=== PATIENT | male | born 1975 | race Caucasian/White ===

== ENCOUNTER 2016-12-02 12:58 | Emergency (ER) | payer SELFPAY ==
[2016-12-02 14:09] VITALS: BP 137/80
[2016-12-02] MEDS ORDERED: Ibuprofen TAB* 400 MG PO ONE (14:18)
--- NOTE | 2016-12-02 14:19 | UC ---
Hand/Wrist HPI - HPI Summary HPI Summary: complaint of left hand pain that started today at 12:45 pinched hand between 2 pieces of steel as they were getting loaded into truck pain over 4th and 5th metacarpals can't bend his fifth finger constant pulsing aching pain that is non radiating pain is worse with any movement hasn't taken any medication - History Of Current Complaint Chief Complaint: UCUpperExtremity Stated Complaint: LEFT HAND INJURY W/C Time Seen by Provider: 12/02/16 14:06 Hx Obtained From: Patient - Allergies/Home Medications Allergies/Adverse Reactions: Allergies Allergy/AdvReac Type Severity Reaction Status Date / Time No Known Allergies Allergy Verified 12/02/16 14:09 Home Medications: Home Medications Antianxiety Med 1 tab PO DAILY 12/02/16 [History Confirmed 12/02/16] Antidepressant 1 tab PO DAILY 12/02/16 [History Confirmed 12/02/16] PMH/Surg Hx/FS Hx/Imm Hx Previously Healthy: Yes Endocrine History Of: Denies: Diabetes, Thyroid Disease Cardiovascular History Of: Denies: Cardiac Disorders, Hypertension Respiratory History Of: Denies: Asthma - Surgical History Surgical History: Yes Surgery Procedure, Year, and Place: kidney stone, nail removed from right knee - Family History Known Family History: Negative: Cardiac Disease, Hypertension, Diabetes - Social History Occupation: Employed Full-time Lives: With Family Alcohol Use: None Substance Use Type: None Smoking Status (MU): Light Every Day Tobacco Smoker Cessation Counseling: Patient Advised to Stop - Immunization History Most Recent Tetanus Shot: 2011 Review of Systems Constitutional: Negative Skin: Negative Eyes: Negative ENT: Negative Respiratory: Negative Cardiovascular: Negative Gastrointestinal: Negative Genitourinary: Negative Motor: Negative Neurovascular: Negative Musculoskeletal: Other: - left hand pain Neurological: Negative Psychological: Negative All Other Systems Reviewed And Are Negative: Yes Physical Exam Triage Information Reviewed: Yes Appearance: No Pain Distress, Well-Nourished Vital Signs: Initial Vital Signs Temp 99.4 F 12/02/16 14:00 Pulse 83 12/02/16 14:00 Resp 18 12/02/16 14:00 BP 137/80 12/02/16 14:00 Vital Signs Reviewed: Yes Eyes: Positive: Conjunctiva Clear ENT: Positive: Pharynx normal, TMs normal. Negative: Nasal congestion Neck: Positive: No Lymphadenopathy Respiratory: Positive: Lungs clear, Normal breath sounds, No respiratory distress Cardiovascular: Positive: RRR, No Murmur, Pulses Normal Abdomen Description: Positive: Nontender, Soft Bowel Sounds: Positive: Present Musculoskeletal: Positive: Other: - LUE- Neurological Exam: Normal Psychological Exam: Normal Skin Exam: Normal Hand/Wrist Course/Dx - Differential Dx/Diagnosis Differential Diagnosis/HQI/PQRI: Contusion, Fracture, Sprain, Strain Provider Diagnoses: left hand contusion Discharge - Discharge Plan Condition: Stable Disposition: HOME Prescriptions: Ibuprofen TAB* [Motrin TAB* 800 MG] 800 mg PO TID #30 tab Patient Education Materials: Contusion in Adults (ED), RICE Therapy (ED) Referrals: Sean Perry [Primary Care Provider] - Additional Instructions: Increase fluids and rest Take acetaminophen or ibuprofen for fever or pain Please review your discharge instructions. If your symptoms do not improve please call your primary care provider or return to urgent care
--- NOTE | 2016-12-02 14:36 | RAD ---
INDICATION: Left hand injury. TECHNIQUE: 2 views of the left hand were obtained. FINDINGS: The bones are in normal alignment. No fracture is seen. Joint spaces appear maintained. IMPRESSION: NO EVIDENCE FOR FRACTURE.
== END 2016-12-02 15:08 | disposition home or self-care (01) ==
LOC: UCCORT 12:58
DX: S60.222A Contusion of left hand, initial encounter (principal); W23.0XXA Caught, crushed, jammed, or pinched between moving objects, initial encounter; Y93.89 Activity, other specified; Y92.9 Unspecified place or not applicable; Y99.0 Civilian activity done for income or pay; F17.210 Nicotine dependence, cigarettes, uncomplicated
CPT/HCPCS: 99202; A9270-GY; G0463

== ENCOUNTER 2017-11-13 10:55 | Emergency (ER) | payer SELFPAY ==
[2017-11-13 11:59] VITALS: BP 138/96
--- NOTE | 2017-11-13 12:50 | UC ---
Complaint Male HPI - HPI Summary HPI Summary: right testicular pain x 2 days no known injury , + swelling, mild redness, no dyuria, no hx of stds, no discharge no fever, no chills, no n/v - History of Current Complaint Chief Complaint: UCGU Stated Complaint: PERSONAL Time Seen by Provider: 11/13/17 12:08 Hx Obtained From: Patient Onset/Duration: Gradual Onset, Lasting Days - 2, Still Present Timing: Constant Severity Initially: Moderate Severity Currently: Severe Pain Intensity: 7 Location: Testicle - right Character: Sharp, Constant Pressure Aggravating Factor(s): Palpation Alleviating Factor(s): Nothing Associated Signs And Symptoms: Negative: Diaphoresis, Back Pain, Fever, Hematuria, Dysuria, Constipation, Blood in Stool, Rectal Pain, Appetite, Nausea , Vomiting(# Of Episodes =), Penile Swelling, Penile Discharge - Allergies/Home Medications Allergies/Adverse Reactions: Allergies Allergy/AdvReac Type Severity Reaction Status Date / Time No Known Allergies Allergy Verified 11/13/17 11:49 Home Medications: Home Medications Ibuprofen TAB* [Motrin TAB* 800 MG] 800 mg PO TID PRN 11/13/17 [History Confirmed 11/13/17] Venlafaxine EXT RELEASE CAP* [Effexor Xr CAP*] 1 tab PO DAILY 11/13/17 [History Confirmed 11/13/17] hydrOXYzine HCL TAB* [Atarax 25 MG TAB*] 25 mg PO SEE INSTRUCTIONS PRN 11/13/17 [History Confirmed 11/13/17] PMH/Surg Hx/FS Hx/Imm Hx Previously Healthy: Yes - Surgical History Surgical History: Yes Surgery Procedure, Year, and Place: kidney stone, nail removed from right knee - Family History Known Family History: Negative: Cardiac Disease, Hypertension, Diabetes - Social History Alcohol Use: None Substance Use Type: None Smoking Status (MU): Light Every Day Tobacco Smoker - Immunization History Most Recent Tetanus Shot: 2011 Review of Systems Constitutional: Negative Skin: Negative Eyes: Negative ENT: Negative Respiratory: Negative Cardiovascular: Negative Is Patient Immunocompromised?: No All Other Systems Reviewed And Are Negative: Yes Physical Exam Triage Information Reviewed: Yes Appearance: Well-Appearing, Well-Nourished, Pain Distress Vital Signs: Initial Vital Signs Temp 99.6 F 11/13/17 11:52 Pulse 94 11/13/17 11:52 Resp 24 11/13/17 11:52 BP 138/96 11/13/17 11:52 Pulse Ox 98 11/13/17 11:52 Vital Signs Reviewed: Yes Eyes: Positive: Conjunctiva Clear ENT: Positive: Normal ENT inspection, Hearing grossly normal, Pharynx normal Neck: Positive: Supple, Nontender, No Lymphadenopathy Respiratory: Positive: Chest non-tender, Lungs clear, Normal breath sounds Cardiovascular: Positive: RRR, No Murmur, Pulses Normal Abdomen Description: Positive: Nontender, Soft. Negative: CVA Tenderness (R), CVA Tenderness (L), Distended, Guarding Skin Exam: Normal UC Physical Exam Vital Signs On Initial Exam: Initial Vitals Temp Pulse Resp BP Pulse Ox 99.6 F 94 24 138/96 98 11/13/17 11:52 11/13/17 11:52 11/13/17 11:52 11/13/17 11:52 11/13/17 11:52 - Genitalia Exam Male Genitalia: Circumcised Male Genitalia Cont.: Right: Testicles Tender, Testicles With Swelling, Scrotum Non-Tender, Bilateral: Testicles Descended Complaint Male Course/Dx - Differential Dx/Diagnosis Provider Diagnoses: right testicular pain Discharge - Discharge Plan Condition: Stable Disposition: HOME Prescriptions: Ciprofloxacin HCl [Cipro] 500 mg PO BID #20 tablet Patient Education Materials: Epididymitis (ED), Testicle Pain (ED) Forms: *Work Release Referrals: Sean Perry [Primary Care Provider] - 5 Days
--- NOTE | 2017-11-13 13:09 | RAD ---
HISTORY: Right testicular pain and swelling COMPARISONS: None TECHNIQUE: Multiple transverse and longitudinal ultrasound images were obtained of the scrotum, using grayscale, color Doppler, and spectral Doppler imaging. FINDINGS: RIGHT: RIGHT TESTICLE: The right testicle measures 4.6 x 2.7 x 3.2 cm. The right testicle is homogeneous in echotexture, without testicular parenchymal mass. Normal arterial and venous waveforms are identified within the right testicle on spectral Doppler imaging. RIGHT EPIDIDYMIS: The right epididymis measures 1.4 cm at the head. RIGHT SCROTUM: There is small left hydrocele. There is no varicocele. LEFT: LEFT TESTICLE: The left testicle measures 4.6 x 2.2 x 2.8 cm. The left testicle is homogeneous in echotexture, without testicular parenchymal mass. Normal arterial and venous waveforms are identified within the left testicle on spectral Doppler imaging. LEFT EPIDIDYMIS: The left epididymis measures 1.1 cm at the head. There is a 0.4 cm cyst of the left epididymal head. LEFT SCROTUM: There is a small left hydrocele. There is no varicocele. OTHER: None IMPRESSION: 1. NO TESTICULAR PARENCHYMAL MASS. 2. NO SONOGRAPHIC FEATURES OF TORSION. PLEASE NOTE THAT PARTIAL OR INTERMITTENT TORSION MAY BE SONOGRAPHICALLY NORMAL. 3. SMALL BILATERAL HYDROCELES.
== END 2017-11-13 13:58 | disposition home or self-care (01) ==
LOC: UCCORT 10:55
DX: N50.811 Right testicular pain (principal); F17.210 Nicotine dependence, cigarettes, uncomplicated
CPT/HCPCS: 76870; 81003; 99212; G0463

== ENCOUNTER 2018-06-25 10:12 | Emergency (ER) | payer SELFPAY ==
[2018-06-25 11:45] VITALS: BP 133/96
--- NOTE | 2018-06-25 12:08 | UC ---
Complaint Male HPI - HPI Summary HPI Summary: The patient is a 42-year-old male with the onset of bilateral testicular pain yesterday evening. Left testicle is more painful than the right. He has no dysuria urgency or frequency of urination. He denies any withdrawal discharge. He had similar symptoms in November of this year which was diagnosed as epididymitis. 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 Pain worsens with bending over and lifting. - History of Current Complaint Chief Complaint: UCGU Stated Complaint: PERSONAL (SWELLING) Time Seen by Provider: 06/25/18 11:50 Hx Obtained From: Patient Onset/Duration: Gradual Onset, Lasting Hours Timing: Constant Severity Initially: Moderate Severity Currently: Moderate Pain Intensity: 7 - MAX, NOW A 4 Pain Scale Used: 0-10 Numeric Location: Testicle Character: Constant Pressure Aggravating Factor(s): Nothing Alleviating Factor(s): Nothing Associated Signs And Symptoms: Positive: Negative - Risk Factors Testicular Torsion: Negative - Allergies/Home Medications Allergies/Adverse Reactions: Allergies Allergy/AdvReac Type Severity Reaction Status Date / Time No Known Allergies Allergy Verified 06/25/18 11:38 PMH/Surg Hx/FS Hx/Imm Hx Previously Healthy: Yes - Surgical History Surgical History: Yes Surgery Procedure, Year, and Place: nail removed from right knee - Family History Known Family History: Negative: Cardiac Disease, Hypertension, Diabetes - Social History Alcohol Use: None Substance Use Type: None Smoking Status (MU): Light Every Day Tobacco Smoker Type: Cigarettes Amount Used/How Often: 7 CIGS A DAY - Immunization History Most Recent Tetanus Shot: 2011 Review of Systems Constitutional: Negative Skin: Negative Eyes: Negative ENT: Negative Respiratory: Negative Cardiovascular: Negative Gastrointestinal: Negative Genitourinary: Other - l>r testicular pain Motor: Negative Neurovascular: Negative Musculoskeletal: Negative Neurological: Negative Psychological: Negative All Other Systems Reviewed And Are Negative: Yes Physical Exam Triage Information Reviewed: Yes Appearance: Well-Appearing, No Pain Distress, Well-Nourished Vital Signs: Initial Vital Signs Temp 98.9 F 06/25/18 11:39 Pulse 70 06/25/18 11:39 Resp 20 06/25/18 11:39 BP 133/96 06/25/18 11:39 Pulse Ox 99 06/25/18 11:39 Vital Signs Reviewed: Yes Eyes: Positive: Conjunctiva Clear ENT: Positive: Hearing grossly normal. Negative: Nasal congestion, Nasal drainage, Tonsillar exudate, Trismus, Muffled voice, Hoarse voice Neck: Positive: Supple, Nontender Respiratory: Positive: Lungs clear, Normal breath sounds, No respiratory distress, No accessory muscle use Cardiovascular: Positive: RRR, No Murmur Abdomen Description: Positive: Nontender, No Organomegaly Male Genital Exam: Positive: No Hernia, Epididymal Tenderness - L>R. Negative: Erythema, Hernia Mass, Inguinal Tenderness, Scrotum Tenderness (R), Scrotum Tenderness (L), Urethral Discharge Musculoskeletal: Positive: Strength Intact, ROM Intact, No Edema Neurological: Positive: Alert Psychological Exam: Normal Skin Exam: Normal Diagnostics - Laboratory Diagnostic Studies Completed/Ordered: UA (+) rbc Complaint Male Course/Dx - Differential Dx/Diagnosis Provider Diagnoses: EPIDIDYMITIS Discharge - Sign-Out/Discharge Documenting (check all that apply): Patient Departure All imaging exams completed and their final reports reviewed: No Studies - Discharge Plan Condition: Stable Disposition: HOME Prescriptions: DOXYcycline CAP(*) [DOXYcycline 100MG CAP(*)] 100 mg PO BID #14 cap Patient Education Materials: Epididymitis (ED) Forms: *Work Release Referrals: Sean Perry [Primary Care Provider] - 1 Week (bp recheck) Additional Instructions: TAKE YOUR IBUPROFEN RECHECK FOR NEW OR WORSENING SYMPTOMS RECHECK IN 3-5 DAYS IF NOT BETTER - Billing Disposition and Condition Condition: STABLE Disposition: Home
== END 2018-06-25 12:14 | disposition home or self-care (01) ==
LOC: UCCORT 10:12
DX: F17.210 Nicotine dependence, cigarettes, uncomplicated (principal); N45.1 Epididymitis
CPT/HCPCS: 81003; 87491; 87591; 99212; G0463

== ENCOUNTER 2018-11-10 10:31 | Emergency (ER) | payer SELFPAY ==
[2018-11-10 11:00] VITALS: BP 141/85
--- NOTE | 2018-11-10 12:00 | UC ---
Lower Extremity/Ankle HPI - HPI Summary HPI Summary: right heel pain x 6 months, no known injury , pain is 6 out of 10 , no radiation no swelling, no bruising increase pain with walking, pt does a lot of walking at work and is on his feel all the time - History of Current Complaint Chief Complaint: UCLowerExtremity Stated Complaint: RIGHT HEEL/HIP CONCERN Time Seen by Provider: 11/10/18 11:12 Hx Obtained From: Patient Onset/Duration: Gradual Onset, Lasting Weeks - 6 months, Still Present Severity Initially: Moderate Severity Currently: Moderate Pain Intensity: 7 Aggravating Factor(s): Standing, Ambulation Alleviating Factor(s): Rest, Ice Able to Bear Weight: Yes - Allergies/Home Medications Allergies/Adverse Reactions: Allergies Allergy/AdvReac Type Severity Reaction Status Date / Time No Known Allergies Allergy Verified 11/10/18 10:58 PMH/Surg Hx/FS Hx/Imm Hx - Additional Past Medical History Additional PMH: anxiety depression, recovering ETOH KIDNEY STONES Psychological History: Anxiety, Depression - Surgical History Surgical History: Yes Surgery Procedure, Year, and Place: nail removed from right knee - Family History Known Family History: Negative: Cardiac Disease, Hypertension, Diabetes - Social History Alcohol Use: None Substance Use Type: None Smoking Status (MU): Light Every Day Tobacco Smoker Type: Cigarettes Amount Used/How Often: 7 CIGS A DAY - Immunization History Most Recent Tetanus Shot: 2011 Review of Systems All Other Systems Reviewed And Are Negative: Yes Constitutional: Positive: Negative Skin: Positive: Negative Eyes: Positive: Negative ENT: Positive: Negative Respiratory: Positive: Negative Is Patient Immunocompromised?: No Physical Exam Triage Information Reviewed: Yes Appearance: Well-Appearing, No Pain Distress, Well-Nourished Vital Signs: Initial Vital Signs Temp 98.2 F 11/10/18 10:56 Pulse 78 11/10/18 10:56 Resp 18 11/10/18 10:56 BP 141/85 11/10/18 10:56 Pulse Ox 98 11/10/18 10:56 Vital Signs Reviewed: Yes Eye Exam: Normal Eyes: Positive: Conjunctiva Clear ENT: Positive: Normal ENT inspection, Hearing grossly normal, Pharynx normal Neck: Positive: Supple, Nontender, No Lymphadenopathy Respiratory: Positive: Chest non-tender, Lungs clear, Normal breath sounds Cardiovascular: Positive: RRR, No Murmur, Pulses Normal Abdominal Exam: Normal Abdomen Description: Positive: Nontender, Soft Musculoskeletal: Positive: Other: - right foot: no swelling, no erythema, + tenderness platar heel Diagnostics - Laboratory Diagnostic Studies Completed/Ordered: right heel xray : heel spur Lower Extremity Course/Dx - Differential Dx/Diagnosis Provider Diagnosis: Pain of right heel Discharge - Sign-Out/Discharge Documenting (check all that apply): Patient Departure All imaging exams completed and their final reports reviewed: Yes - Discharge Plan Condition: Stable Disposition: HOME Patient Education Materials: Heel Spur (ED), Plantar Fasciitis Exercises (ED) Referrals: Sean Perry [Primary Care Provider] - 7 Days Manny Palm DPM [Doctor of Podiatric Medicine] - As Soon As Possible - Billing Disposition and Condition Condition: STABLE Disposition: Home
== END 2018-11-10 11:59 | disposition home or self-care (01) ==
LOC: UCCORT 10:31
DX: M25.571 Pain in right ankle and joints of right foot (principal); F17.210 Nicotine dependence, cigarettes, uncomplicated
CPT/HCPCS: 99211; G0463

== ENCOUNTER 2019-01-25 09:13 | Emergency (ER) | payer OTHER ==
[2019-01-25 09:25] VITALS: BP 140/91
[2019-01-25] MEDS ORDERED: Ibuprofen TAB* 600 MG PO ONE (09:32)
[2019-01-25] MEDS ORDERED: HYDROcodone/ACETAMIN 5-325 MG* 1 TAB PO ONE (09:32)
--- NOTE | 2019-01-25 10:27 | UC ---
Back Pain HPI - HPI Summary HPI Summary: 43 year old male with PMH + for anxiety, h/o ETOH abuse presents after work injury, fell onto bottom after wrapping pallet, immediate pain, no numbness, tingling, ambulatory with pain at buttock area, no loss of bowel/ bladder function. has h/o spinal disease- when young, jumped off roof with + fracture to back, non-op. - History of Current Complaint Chief Complaint: UCBackPain Stated Complaint: WC-SP FALL,LOWER BACK PAIN Time Seen by Provider: 01/25/19 09:23 Hx Obtained From: Patient Onset/Duration: Sudden Onset, Lasting Hours, Still Present Timing: Constant Severity Initially: Moderate Severity Currently: Moderate Pain Intensity: 0 Pain Scale Used: 0-10 Numeric Back Pain: Is Discrete @ - lower spine/buttock area Character: Sharp, Throbbing, Spasmodic, Stiffness Aggravating Factor(s): Movement, Lifting, Bending, Walking Alleviating Factor(s): Rest - Allergies/Home Medications Allergies/Adverse Reactions: Allergies Allergy/AdvReac Type Severity Reaction Status Date / Time No Known Allergies Allergy Verified 01/25/19 09:20 PMH/Surg Hx/FS Hx/Imm Hx Previously Healthy: No - anxiety, back pain - Surgical History Surgical History: Yes Surgery Procedure, Year, and Place: nail removed from right knee - Family History Known Family History: Negative: Cardiac Disease, Hypertension, Diabetes - Social History Alcohol Use: None Substance Use Type: None Smoking Status (MU): Light Every Day Tobacco Smoker Type: Cigarettes Amount Used/How Often: 7 CIGS A DAY - Immunization History Most Recent Tetanus Shot: 2011 Review of Systems All Other Systems Reviewed And Are Negative: Yes Musculoskeletal: Positive: Arthralgia, Decreased ROM, Myalgia Psychological: Positive: Anxious Is Patient Immunocompromised?: No Physical Exam Triage Information Reviewed: Yes Appearance: Well-Appearing, No Pain Distress, Well-Nourished Vital Signs: Initial Vital Signs Temp 99.9 F 01/25/19 09:21 Pulse 91 01/25/19 09:21 Resp 15 01/25/19 09:21 BP 140/91 01/25/19 09:21 Pulse Ox 99 01/25/19 09:21 Vital Signs Reviewed: Yes Eyes: Positive: Conjunctiva Clear Neck: Positive: Supple, Nontender. Negative: Nuchal Rigidity Musculoskeletal: Positive: Other: - ROM of spine WNLs with extension, flexion, side to side motions, TTP over ~ L1 region, mid lumbar, and saccryl region. no soft tissue pain, no paraspinal tenderness. Neurological: Positive: Other: - patellar reflexes 3+ b/l Psychological Exam: Normal Skin Exam: Normal Back Pain Course/Dx - Course Course Of Treatment: radiograph + for DJD, prior injuries, no acute injury. [place]/ motrin given - Increase rest over next 48 hours, avoid heavy lifting, bending, pulling - Gentle range of motion exercises and stretches - [place] as needed for severe pain - Motrin 600mg every 8 hours for next 3-4 days to prevent swelling - Increase fluid intake - WOrk note - Differential Dx/Diagnosis Differential Diagnosis/HQI/PQRI: Strain, Sprain Provider Diagnosis: Lumbago Discharge - Sign-Out/Discharge Documenting (check all that apply): Patient Departure All imaging exams completed and their final reports reviewed: Yes - Discharge Plan Condition: Good Disposition: HOME Prescriptions: HYDROcodone/ACETAMIN 5-325 MG* [[place] 5-325 TAB*] 1 tab PO Q6H PRN #15 tab MDD 4 PRN Reason: Pain Ibuprofen TAB* [Motrin TAB* 600 MG] 600 mg PO Q8H PRN #30 tab PRN Reason: Pain Patient Education Materials: Acute Low Back Pain (ED), Lower Back Exercises (ED ) Forms: *Work Release Referrals: Sean Perry [Primary Care Provider] - Additional Instructions: - Increase rest over next 48 hours, avoid heavy lifting, bending, pulling - Gentle range of motion exercises and stretches - [place] as needed for severe pain - Motrin 600mg every 8 hours for next 3-4 days to prevent swelling - Increase fluid intake - WOrk note - Billing Disposition and Condition Condition: GOOD Disposition: Home - Attestation Statements Provider Attestation: Per institutional requirements, I have reviewed the chart, however, I was not consulted specifically or made aware of this patient by the midlevel provider. I did not personally evaluate, interact with , or disposition this patient.
== END 2019-01-25 10:20 | disposition home or self-care (01) ==
LOC: UCCORT 09:13
DX: M54.5 Low back pain (principal); F41.9 Anxiety disorder, unspecified; F17.210 Nicotine dependence, cigarettes, uncomplicated
CPT/HCPCS: 72110; 99212; A9270-GY; G0463

== ENCOUNTER 2019-11-04 12:55 | Emergency (ER) | payer BC ==
--- NOTE | 2019-11-04 13:10 | UC ---
Cardiac HPI - HPI Summary HPI Summary: 44 year old male with left jaw pain , left arm pain that radiates down the arm. He has a history of smoking. Left lower tooth pain for 3 days and the past 3 hours with severe pain in the left arm that radiates down the arm. Pain is alex [place] 04/24 - History of Current Complaint Stated Complaint: MOTUH/JAW COMP Time Seen by Provider: 11/04/19 13:08 Hx Obtained From: Patient Aggravating Factor(s): Exertion Alleviating Factor(s): Nothing - Allergy/Home Medications Allergies/Adverse Reactions: Allergies Allergy/AdvReac Type Severity Reaction Status Date / Time No Known Allergies Allergy Verified 01/25/19 09:20 Home Medications: Home Medications Venlafaxine EXT RELEASE CAP* [Effexor Xr CAP*] 1 tab PO DAILY 11/13/17 [History Confirmed 01/25/19] hydrOXYzine HCL TAB* [Atarax 25 MG TAB*] 25 mg PO SEE INSTRUCTIONS PRN 11/13/17 [History Confirmed 01/25/19] HYDROcodone/ACETAMIN 5-325 MG* [[place] 5-325 TAB*] 1 tab PO Q6H PRN #15 tab MDD 4 01/25/19 [Rx] Ibuprofen TAB* [Motrin TAB* 600 MG] 600 mg PO Q8H PRN #30 tab 01/25/19 [Rx] PMH/Surg Hx/FS Hx/Imm Hx Previously Healthy: Yes Psychological History: Anxiety, Depression - Surgical History Surgical History: Yes Surgery Procedure, Year, and Place: nail removed from right knee - Family History Known Family History: Negative: Cardiac Disease, Hypertension, Diabetes - Social History Alcohol Use: None Substance Use Type: None Smoking Status (MU): Light Every Day Tobacco Smoker Type: Cigarettes Amount Used/How Often: 7 CIGS A DAY - Immunization History Most Recent Tetanus Shot: 2011 Review of Systems All Other Systems Reviewed And Are Negative: Yes ENT: Positive: Dental Pain Musculoskeletal: Positive: Other: - arm pain left sided Is Patient Immunocompromised?: No Physical Exam Triage Information Reviewed: Yes Appearance: Ill-Appearing, Pain Distress - moderate Vital Signs Reviewed: Yes Eye Exam: Normal ENT Exam: Normal Dental: Positive: Dental Fracture @ - tooth 18 fractured with poor dentiion around the area with tenderness to palpation Neck exam: Normal Neck: Positive: 1 Respiratory Exam: Normal Cardiovascular Exam: Normal Musculoskeletal Exam: Normal Musculoskeletal: Positive: Strength Intact, ROM Intact, Other: - left arm pain / tenderness to palpation Neurological Exam: Normal Psychological Exam: Normal Skin Exam: Normal Diagnostics - EKG Cardiac Rate: NL Cardiac Rhythm: Sinus: Normal Ectopy: None ST Segment: Normal - Assessment/Plan Course Of Treatment: 44 yr old smoker with left facial pain and severe left arm pain that radiates down to the arm for 3 hours. Aspirin 325 mg PO x 1 . Called 911 for further evaluation. Pt aware and agree to go to [facility]. - Differential Diagnoses - Chest Pain Differential Diagnosis/HQI/PQRI: Acute LA, ACS, Angina - Clinical Impression Provider Diagnosis: Arm pain, left, Dental abscess - Physician Notifications Time Discussed With Above Provider: 13:30 - spoke to JACKI Shi Discharge ED - Sign-Out/Discharge Documenting (check all that apply): Patient Departure All imaging exams completed and their final reports reviewed: No Studies - Discharge Plan Condition: Good Disposition: TRANS HIGHER LVL OF CARE FAC Referrals: Sean Perry [Primary Care Provider] - 1 Day - Billing Disposition and Condition Condition: GOOD Disposition: Trans Higher Lvl of Care Fac
[2019-11-04] MEDS: Aspirin TAB* 325 MG PO ONE ×2 (13:15→14:04)
[2019-11-04 13:27] VITALS: BP 131/95
[2019-11-04] MEDS ORDERED: Aspirin 81 mg CHEW TAB* 81 MG TAB.CHEW ONE (14:01)
[2019-11-04] MEDS ORDERED: Aspirin 81 mg CHEW TAB* 81 MG TAB.CHEW PO ONE (14:01)
== END 2019-11-04 13:39 | disposition short-term general hospital (02) ==
LOC: UCCORT 12:55
DX: M79.602 Pain in left arm (principal); K04.7 Periapical abscess without sinus; F32.9 Major depressive disorder, single episode, unspecified; F41.9 Anxiety disorder, unspecified; F17.210 Nicotine dependence, cigarettes, uncomplicated; Z79.899 Other long term (current) drug therapy
CPT/HCPCS: 93005; 99214; A9270-GY; G0463